=== PATIENT | male | born 1975 | race Caucasian/White ===

== ENCOUNTER 2021-10-01 11:59 | Emergency (ER) | payer SELFPAY ==
[~2021-10-01] VITALS: Ht 177.8 cm; Wt 104.3 kg
[2021-10-01 12:03] VITALS: BP 191/131
[2021-10-01] MEDS ORDERED: IBUP-2213 PO (12:36)
== END 2021-10-01 12:46 | disposition home or self-care (01) ==
LOC: MED 11:59
DX: S86.812A Strain of other muscle(s) and tendon(s) at lower leg level, left leg, initial encounter (principal); I10 Essential (primary) hypertension; Z79.899 Other long term (current) drug therapy; X58.XXXA Exposure to other specified factors, initial encounter; Y93.89 Activity, other specified; Y92.89 Other specified places as the place of occurrence of the external cause; Y99.8 Other external cause status
CPT/HCPCS: 99282